=== PATIENT | male | born 1995 | race Caucasian/White ===

== ENCOUNTER 2017-05-18 16:08 | Emergency (ER) | payer MEDICAID ==
[~2017-05-18] VITALS: Ht 180.3 cm; Wt 114.0 kg
[~2017-05-18 16:08] MED LIST: CEPH-443 PO
[2017-05-18 16:09] VITALS: Ht 180.3 cm; Wt 114.0 kg
[2017-05-18] MEDS ORDERED: ELIM TOP (16:23)
[2017-05-18] MEDS ORDERED: BEN25 PO (16:23)
--- NOTE | 2017-05-18 16:27 | ERD ---
ER Documentation Chief Complaint Date/Time DATE: 05/18/17 TIME: 16:24 Chief Complaint rashes all over the body HPI 21-year-old male presents with itchy rash all over his body he states he has had for about 1 month. He states it is particularly itchy at night when he is in his bed. He denies any fever. Denies any swelling of his lips or tongue. Denies any difficulty eating drinking breathing or swallowing. He has not tried any medication for this. ROS All systems reviewed and are negative except as per history of present illness. Medications Home Meds Active Scripts Permethrin* (Elimite*) 5% Cr, 1 APPLIC TOP ONCE, #60 TUB Prov:MARTIN MARTINEZ PA-C 05/18/17 Diphenhydramine Hcl* (Benadryl*) 25 Mg Cap, 25 MG PO Q6, #30 CAP Prov:MARTIN MARTINEZ PA-C 05/18/17 Reported Medications Cephalexin* (Keflex*) 500 Mg Capsule, 500 MG PO Q6, CAP 03/14/15 Allergies Allergies: Coded Allergies: No Known Allergy (Unverified , 03/14/15) PMhx/Soc Hx Alcohol Use: Yes Hx Substance Use: Yes (WEED) Hx Tobacco Use: Yes FmHx Family History: No diabetes Physical Exam Vitals Vital Signs Date Time Temp Pulse Resp B/P Pulse Ox O2 Delivery O2 Flow Rate FiO2 05/18/17 16:09 98.1 96 19 134/71 94 Physical Exam Const: [] Head: Atraumatic Eyes: Normal Conjunctiva ENT: Normal External Ears, Nose and Mouth. Neck: Full range of motion..~ No meningismus. Resp: Clear to auscultation bilaterally Cardio: Regular rate and rhythm, no murmurs Abd: Soft, non tender, non distended. Normal bowel sounds Skin: Macular papular bite-like lesions on the bilateral upper extremities as well as abdomen with linear burrows seen Procedures/MDM Patient presents with a rash that is most consistent with scabies. He was given a prescription for permethrin cream and I counseled him on washing all of his close with hot water as well as all of his bed sheets. Recommended this patient follow up with her primary care doctor within 48 hours or return to the emergency room for any worsening of symptoms. However this time I do believe there is suitable for outpatient management. I answered all their questions and they agreed with the plan and were discharged home. Departure Diagnosis: Primary Impression: Rash Condition: Stable Patient Instructions: Scabies Additional Instructions: Call your primary care doctor TOMORROW for an appointment during the next 1-2 days.See the doctor sooner or return here if your condition worsens before your appointment time. MARTIN MARTINEZ PA-C May 18, 2017 16:27
== END 2017-05-18 16:32 | disposition home or self-care (01) ==
LOC: FTE 16:08
DX: R21 Rash and other nonspecific skin eruption (principal); Z87.891 Personal history of nicotine dependence
CPT/HCPCS: 99283

== ENCOUNTER 2017-05-21 16:45 | Emergency (ER) | payer MEDICAID ==
[~2017-05-21] VITALS: Ht 180.3 cm; Wt 113.0 kg
[~2017-05-21 16:45] MED LIST changes: +BEN25 PO; +ELIM TOP
[2017-05-21 16:50] VITALS: Ht 180.3 cm; Wt 113.0 kg
[2017-05-21] MEDS ORDERED: BEN25 PO (17:11)
[2017-05-21] MEDS ORDERED: ELIM TOP (17:11)
--- NOTE | 2017-05-21 17:16 | ERD ---
ER Documentation Chief Complaint Date/Time DATE: 05/21/17 TIME: 17:13 Chief Complaint NEED NEW TREATMENT FOR SCABIES HPI This is a 21-year-old male presents to the ER for an itchy rash that started 3 days ago. Patient came to the ER was treated for scabies. Patient however was not applying cream correctly. Patient continues to have rash and is very itchy. Patient denies any fevers or chills. No one else at home has this rash. He denies any shortness of breath, facial swelling. He denies coming in contact with any new drugs or materials or foods. ROS 12 point review of systems was done, all negative except per HPI. Medications Home Meds Active Scripts Diphenhydramine Hcl* (Benadryl*) 25 Mg Cap, 25 MG PO Q6, #30 CAP Prov:CATARINO REGALADO 05/21/17 Permethrin* (Elimite*) 5% Cr, 1 APPLIC TOP ONCE for 1 Day, TUB Prov:CATARINO REGALADO 05/21/17 Permethrin* (Elimite*) 5% Cr, 1 APPLIC TOP ONCE, #60 TUB Prov:MARTIN MARTINEZ PA-C 05/18/17 Diphenhydramine Hcl* (Benadryl*) 25 Mg Cap, 25 MG PO Q6, #30 CAP Prov:MARTIN MARTINEZ PA-C 05/18/17 Reported Medications Cephalexin* (Keflex*) 500 Mg Capsule, 500 MG PO Q6, CAP 03/14/15 Allergies Allergies: Coded Allergies: No Known Allergy (Unverified , 05/21/17) PMhx/Soc Medical and Surgical Hx: pt denies Medical Hx, pt denies Surgical Hx Hx Alcohol Use: Yes Hx Substance Use: Yes (WEED) Hx Tobacco Use: Yes Smoking Status: Current every day smoker Physical Exam Vitals Vital Signs Date Time Temp Pulse Resp B/P Pulse Ox O2 Delivery O2 Flow Rate FiO2 05/21/17 16:50 98.9 94 18 140/63 97 Physical Exam GENERAL: The patient is well developed and appropriate for usual state of health , in no apparent distress. HEENT: Atraumatic. There is no tongue, lip, eyes swelling. CHEST: Clear to auscultation bilaterally. There are no rales, wheezes or rhonchi. HEART: Regular rate and rhythm. No murmurs, clicks, rubs or gallops. NEURO: Alert and oriented. SKIN: Patient has a rash all over the body that is burrowing in nature. Procedures/MDM Differential Diagnosis: dermatitis, allergic urticaria, viral exanthem, insect bite, fungal infectio ,viral exanthem, hand foot mouth disease, , impetigo, cellulitis, abscess, elodia antonino syndrome, meningocemia, necrotizing fasciitis. This is a 21-year-old male presents to the ER with scabies. Patient was applying the medication the wrong way, patient was given permethrin was again and educated on how to use medication. Patient was also given Benadryl for itching. At this time suspicion for infectious etiology is low. Patient is afebrile and extremely well-appearing. I doubt this is an allergic reaction as these do not look like hives. Patient does not have any angioedema or difficulty breathing. Patient is to follow-up with his primary care doctor within 1-2 days return to ER sooner if symptoms worsen. My medical decision making shared with the patient he understands and agrees with plan. Departure Diagnosis: Primary Impression: Rash Condition: Stable Patient Instructions: Scabies Additional Instructions: Call your primary care doctor TOMORROW for an appointment during the next 1-2 days.See the doctor sooner or return here if your condition worsens before your appointment time. CATARINO REGALADO May 21, 2017 17:16
== END 2017-05-21 17:22 | disposition home or self-care (01) ==
LOC: FTE 16:45
DX: R21 Rash and other nonspecific skin eruption (principal); F17.210 Nicotine dependence, cigarettes, uncomplicated
CPT/HCPCS: 99283

== ENCOUNTER 2017-07-08 20:56 | Emergency (ER) | payer MEDICAID ==
[~2017-07-08] VITALS: Ht 180.3 cm; Wt 104.0 kg
[2017-07-08 21:10] VITALS: Ht 180.3 cm; Wt 104.0 kg
--- NOTE | 2017-07-08 21:58 | ERD ---
ER Documentation Chief Complaint Date/Time DATE: 07/08/17 TIME: 21:53 Chief Complaint C/O RT SD CP WHEN BREATHING DEEP. +ITCHING TODAY. HX SCABIES 2MO AGO W/ TX HPI 21-year-old male presents here in emergency department for complaints of right- sided chest pain radiating to his right back pain started 2 days ago. Patient describes the pain as sharp pain, 6/10 scale, is worse upon taking a deep breath. Patient also has been itching and has been having a rash all over the body, patient was seen at another clinic 2 months ago, also to have possible scabies. Patient states that he had the same type of rash, was given treatment, got better afterwards, but then patient started to have it again last 2 days. 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 Patient does not have any family members with the same type of rash. ROS All systems reviewed and are negative except as per history of present illness. Medications Home Meds Active Scripts Diphenhydramine Hcl* (Benadryl*) 25 Mg Cap, 25 MG PO Q6, #30 CAP Prov:CATARINO REGALADO 05/21/17 Permethrin* (Elimite*) 5% Cr, 1 APPLIC TOP ONCE for 1 Day, TUB Prov:CATARINO REGALADO 05/21/17 Permethrin* (Elimite*) 5% Cr, 1 APPLIC TOP ONCE, #60 TUB Prov:MARTIN MARTINEZ PA-C 05/18/17 Diphenhydramine Hcl* (Benadryl*) 25 Mg Cap, 25 MG PO Q6, #30 CAP Prov:MARTIN MARTINEZ PA-C 05/18/17 Reported Medications Cephalexin* (Keflex*) 500 Mg Capsule, 500 MG PO Q6, CAP 03/14/15 Allergies Allergies: Coded Allergies: No Known Allergy (Unverified , 07/08/17) PMhx/Soc Medical and Surgical Hx: pt denies Medical Hx, pt denies Surgical Hx Hx Alcohol Use: Yes Hx Substance Use: Yes (WEED) Hx Tobacco Use: Yes FmHx Family History: No coronary disease, No diabetes, No other Physical Exam Vitals Vital Signs Date Time Temp Pulse Resp B/P Pulse Ox O2 Delivery O2 Flow Rate FiO2 07/08/17 21:10 97.0 88 18 156/67 98 Physical Exam GENERAL: The patient is well developed and appropriate for usual state of health, in no apparent distress. CHEST: Clear to auscultation bilaterally. There are no rales, wheezes or rhonchi. HEART: Regular rate and rhythm. No murmurs, clicks, rubs or gallops. No S3 or S4. ABDOMEN: Soft, nontender and nondistended. Good bowel sounds. No rebound or guarding. No gross peritonitis. No gross organomegaly or masses. No Cantu sign or McBurney point tenderness. BACK: No midline or flank tenderness. EXTREMITIES: Equal pulses bilaterally. There is no peripheral clubbing, cyanosis or edema. No focal swelling or erythema. Full range of motion. Grossly neurovascularly intact. NEURO: Alert and oriented. Cranial nerves 2-12 intact. Motor strength in all 4 extremities with 5/5 strength. Sensation grossly intact. Normal speech and gait. SKIN: Maculopapular rash noted over the body. There is no apparent rash or petechia. The skin is warm and dry. HEMATOLOGIC AND LYMPHATIC: There is no evidence of excessive bruising or lymphedema. No gross cervical, axillary, or inguinal lymphadenopathy. Results 24 hrs EKG was done, read by me and is normal sinus rhythm at a rate of 81, normal axis , there is no ST changes or changes in the EKG that indicates any cardiac emergencies at this time. Patient's EKG was also reviewed by . Impression : no acute findings on EKG When patient was called for x-ray, patient cannot be found anymore in the waiting room, Procedures/MDM Medical Decision Making: Patient back pain and chest pain nonspecific at this time, most likely is musculoskeletal pain. There is low suspicion for cardiopulmonary emergencies at this time. Patient has low risk factors. EKG is normal, there is no changes in the EKG that indicates cardiac emergencies. Chest X-ray does not show cardiopulmonary emergencies at this time. There is low suspicion for aortic aneurysm, myocardial infarction, pneumothorax, pleural effusion, pulmonary embolism, or any other cardiopulmonary emergencies at this time. Cardiac markers are normal. Patient rash nonspecific at this time, possible scabies. Patient was advised to avoid scratching the area. Patient was also advised to avoid using rest of methamphetamine which causes sometimes to itch. No symptoms of any coagulopathies. No symptoms of any urticaria. Upon going patient in the waiting room, patient cannot be found anymore, patient eloped. Was unable to get prescriptions. Tried to contact patient, cannot be contacted. Dispostion: Patient eloped Departure Diagnosis: Primary Impression: Back pain Back pain location: low back pain Chronicity: acute Back pain laterality: bilateral Sciatica presence: without sciatica Qualified Code: M54.5 - Acute bilateral low back pain without sciatica Additional Impressions: Atypical chest pain Rash Condition: Stable ARIANNA MCCRACKEN NP Jul 08, 2017 21:58
[2017-07-09] MEDS ORDERED: BEN50 PO (16:44)
[2017-07-09] MEDS ORDERED: CETI10CA PO (16:44)
== END 2017-07-08 23:35 | disposition left against medical advice (07) ==
LOC: FTE 20:56
DX: M54.5 Low back pain (principal); R07.89 Other chest pain; R21 Rash and other nonspecific skin eruption
CPT/HCPCS: 93005; Z7502

== ENCOUNTER 2017-07-09 15:08 | Emergency (ER) | payer MEDICAID ==
[~2017-07-09] VITALS: Ht 160 cm; Wt 84.0 kg
[2017-07-09 15:12] VITALS: Ht 160 cm; Wt 84.0 kg
[2017-07-09] MEDS ORDERED: CETI10CA PO (16:44)
[2017-07-09] MEDS ORDERED: BEN50 PO (16:44)
--- NOTE | 2017-07-09 16:53 | ERA ---
ER Documentation Chief Complaint Date/Time DATE: 07/09/17 TIME: 16:48 Chief Complaint rash/itching here last night w/same HPI This is a 21-year-old male with a chief complaint of itching. Patient says he was treated for scabies 3 weeks ago. There are no household/close contacts with similar symptoms. Patient has used bed with his mom he does not have any symptoms. Sheets have been washed with hot water. Permethrin cream applied twice. Denies fever, change in mental status. Patient does admit to crystal meth and bath salt use. Patient has no other complaints and describes no other associated manifestations. Nursing notes have been reviewed and are consistent with history given. ROS All systems reviewed and are negative except as per history of present illness. Medications Home Meds Active Scripts Diphenhydramine Hcl* (Benadryl*) 50 Mg Cap, 50 MG PO QHS, #30 CAP Prov:MILA WALDROP PA-C 07/09/17 Cetirizine Hcl* (Zyrtec*) 10 Mg Capsule, 10 MG PO QAM, #10 TAB.CHEW Prov:MILA WALDROP PA-C 07/09/17 Diphenhydramine Hcl* (Benadryl*) 25 Mg Cap, 25 MG PO Q6, #30 CAP Prov:CATARINO REGALADO 05/21/17 Permethrin* (Elimite*) 5% Cr, 1 APPLIC TOP ONCE for 1 Day, TUB Prov:CATARINO REGALADO 05/21/17 Permethrin* (Elimite*) 5% Cr, 1 APPLIC TOP ONCE, #60 TUB Prov:MARTIN MARTINEZ PA-C 05/18/17 Diphenhydramine Hcl* (Benadryl*) 25 Mg Cap, 25 MG PO Q6, #30 CAP Prov:MARTIN MARTINEZ PA-C 05/18/17 Reported Medications Cephalexin* (Keflex*) 500 Mg Capsule, 500 MG PO Q6, CAP 03/14/15 Allergies Allergies: Coded Allergies: No Known Allergy (Unverified , 07/08/17) PMhx/Soc Medical and Surgical Hx: pt denies Medical Hx, pt denies Surgical Hx Hx Alcohol Use: Yes Hx Substance Use: Yes (marijuana, crystal meth) Hx Tobacco Use: Yes Smoking Status: Current every day smoker Physical Exam Vitals Vital Signs Date Time Temp Pulse Resp B/P Pulse Ox O2 Delivery O2 Flow Rate FiO2 07/09/17 15:12 97.9 84 20 136/95 99 Physical Exam Const: Well-appearing, overweight 21-year-old male in no acute distress Head: Atraumatic Eyes: Normal Conjunctiva ENT: Normal External Ears, Nose and Mouth. Neck: Full range of motion..~ No meningismus. Resp: Clear to auscultation bilaterally Cardio: Regular rate and rhythm, no murmurs Abd: Soft, non tender, non distended. Normal bowel sounds Skin: No petechiae or rashes Back: No midline or flank tenderness Ext: No cyanosis, or edema Neur: Awake and alert Psych: Normal Mood and Affect Procedures/MDM 21-year-old male with a chief complaint of itching. The patient has no rash on physical exam. Patient has a history of crystal meth and bath salt use. Patient is trying to quit. On and off for the past few weeks. Has been treated with permethrin with no relief. At this time I very low suspicion for pediculosis, fungal infection, or bacterial involvement. Most likely diagnosis is psychological itching due to drugs. I have spoke with the patient regarding their condition and future management. They have verbally responded that they understand their status and treatment plan. The patients vitals are stable, and their current condition is appropriate for discharge. The patient will be given discharge instructions with return precautions. Discharge medications: Zyrtec every morning, Benadryl 50 mg p.o. nightly. Departure Diagnosis: Primary Impression: Itching due to drug Condition: Stable Patient Instructions: Self-Care for Skin Rashes Additional Instructions: Follow up with your PCP within the next 1-3 days for a more thorough evaluation and a possible referral to a specialist. Return the the emergency department immediately if symptoms worsen or change. If you have any questions regarding medications, ask your pharmacist or us before you leave. If any adverse reactions occur while taking your medications, discontinue the treatment and return to the emergency department immediately. Take your medications as directed, and complete the entire course of treatment. MILA WALDROP PA-C Jul 09, 2017 16:53
== END 2017-07-09 17:17 | disposition home or self-care (01) ==
LOC: FTE 15:08
DX: L29.9 Pruritus, unspecified (principal); F17.210 Nicotine dependence, cigarettes, uncomplicated
CPT/HCPCS: 99283